=== PATIENT | female | born 1955 | race Caucasian/White ===

== ENCOUNTER → 2018-01-15 | Outpatient (CLI) | payer OTHER ==
[~2018-01-15] MED LIST: ALPH300C PO; ASPI-496 PO; CALC1CAP8 PO; CHOL200024 PO; FISH1CAP6 PO; FLUT16SP NS; METF500T9 PO; METO25TA91 PO; MULT-516 PO; OMEP-110 PO; PARO20TA4 PO; ROSU20TA PO
[2018-01-15 09:14] LABS: ALANINE AMINOTRANSFERASE 24 U/L (12-78); ALBUMIN 3.9 g/dL (3.4-5.0); ANION GAP 6 mmol/L (5-15); CHLORIDE 108 mmol/L (98-107); CREATININE 0.91 mg/dL (0.55-1.02)
[2018-01-15 09:17] LABS: ALKALINE PHOSPHATASE 67 U/L (45-117); BILIRUBIN,TOTAL 1.5 mg/dL (0.2-1.0); TOTAL PROTEIN 7.3 g/dL (6.4-8.2)
== END ==
LOC: STAR 08:04
PROVIDERS: ATTEND Obstetrics & Gynecology Female Pelvic Medicine and Reconstructive Surgery
DX: Z01.818 Encounter for other preprocedural examination (principal)
CPT/HCPCS: 36415; 80053; 93005

== ENCOUNTER 2018-01-20 09:42 | Day surgery (SDC) | payer OTHER ==
[2018-01-15 09:39] VITALS: BP 137/79
[~2018-01-20] VITALS: Ht 167.6 cm; Wt 117.0 kg
[~2018-01-20 09:42] MED LIST changes: +BUPIVACAINE/PF 0.25% ONE; +EPINEPHRINE 1 MG/ML, 1ML ONE; +NEOMY/POLYMYXIN B GU IRR. 1 ML IRRIG ONE
[2018-01-20] MEDS ORDERED: LACTATED RINGERS 1,000 ML IV SCH (11:06)
[2018-01-20] MEDS ORDERED: IMETREX PO (11:17)
[2018-01-20] MEDS ORDERED: SCOPOLAMINE PATCH, 1.5MG PATCH.TD72 TD SCH (11:30)
[2018-01-20] MEDS ORDERED: ACETAMINOPHEN 500 MG TABLET PO ONE (11:30)
[2018-01-20] MEDS ORDERED: GABAPENTIN 300 MG CAPSULE PO SCH (11:30)
[2018-01-20] MEDS ORDERED: OxyconTIN ER 20 MG TAB.ER ONE ×2 (12:12→12:19)
[2018-01-20] MEDS ORDERED: OxyconTIN ER 20 MG TAB.ER PO ONE (12:30)
[2018-01-20] MEDS ORDERED: FENTANYL PF 250 MCG/5ML ONE (12:45)
[2018-01-20] MEDS ORDERED: MIDAZOLAM 1 MG/ML, 2ML ONE (12:45)
[2018-01-20] MEDS ORDERED: PROPOFOL 10 MG/ML, 20ML ONE (12:46)
[2018-01-20] MEDS ORDERED: ROCURONIUM 10 MG/ML,10ML ONE (12:47)
[2018-01-20] MEDS ORDERED: GLYCOPYRROLATE 0.4 MG/2 ML, 2ML ONE (12:48)
[2018-01-20] MEDS ORDERED: NEOSTIGMINE 1 MG/ML, 10ML ONE (12:48)
[2018-01-20] MEDS ORDERED: DEXAMETHASONE 4 MG/ML, 1ML ONE ×2 (12:48)
[2018-01-20] MEDS ORDERED: SODIUM CHLORIDE 0.9% PF 10ML ONE (12:49)
[2018-01-20] MEDS ORDERED: CEFAZOLIN 1,000 MG ONE ×2 (12:49)
[2018-01-20] MEDS ORDERED: ONDANSETRON 2MG/ML, 2ML ONE (12:49)
[2018-01-20] MEDS ORDERED: hydrALAzine 20 MG/ML, 1ML IV PRN (14:30)
[2018-01-20] MEDS ORDERED: PROMETHAZINE 12.5 MG SUPP PR PRN (14:30)
[2018-01-20] MEDS ORDERED: morphine SULFATE 10 MG/ML, 1ML IV PRN (14:30)
[2018-01-20] MEDS ORDERED: PROMETHAZINE 25 MG/ML, 1ML IV PRN (14:30)
[2018-01-20] MEDS ORDERED: ONDANSETRON 2MG/ML, 2ML IVPush PRN (14:30)
[2018-01-20] MEDS ORDERED: OXYcodone 5 MG/5 ML ORAL.SOL UDC PO PRN (14:30)
[2018-01-20] MEDS ORDERED: HYDROmorphone 1 MG/ML, 1ML IV PRN ×2 (14:30→21:00)
[2018-01-20] MEDS ORDERED: FENTANYL PF 100 MCG/2ML IV PRN (14:30)
[2018-01-20] MEDS ORDERED: LABETALOL 5MG/ML, 20ML IV PRN (14:30)
[2018-01-20] MEDS ORDERED: MEPERIDINE/PF 25MG/0.5ML IVPush PRN (14:30)
[2018-01-20] MEDS ORDERED: OXYcodone/APAP 5/325MG TABLET PO PRN (21:00)
[2018-01-20] MEDS ORDERED: IBUPROFEN 600 MG TABLET PO PRN (21:00)
[2018-01-20] MEDS ORDERED: KETOROLAC 30 MG/1 ML IV PRN (21:00)
[2018-01-20] MEDS ORDERED: HYDROcodone/APAP 5/325 TABLET PO PRN (21:00)
[2018-01-20] MEDS ORDERED: ONDANSETRON 2MG/ML, 2ML IV PRN (21:00)
== END 2018-01-20 21:30 | disposition home or self-care (01) ==
LOC: OUT 09:42 → 4NOR 19:40 → OUT 21:30
PROVIDERS: ATTEND Obstetrics & Gynecology Female Pelvic Medicine and Reconstructive Surgery
PROC: 0JQC0ZZ Repair Pelvic Region Subcutaneous Tissue and Fascia, Open Approach (ICD-10-PCS; 2018-01-20)
PROC: 0JQC0ZZ Repair Pelvic Region Subcutaneous Tissue and Fascia, Open Approach (ICD-10-PCS; principal; 2018-01-20 12:30)
DX: N39.46 Mixed incontinence (principal); N81.5 Vaginal enterocele; E11.9 Type 2 diabetes mellitus without complications; F41.8 Other specified anxiety disorders; K21.9 Gastro-esophageal reflux disease without esophagitis; I10 Essential (primary) hypertension; G43.909 Migraine, unspecified, not intractable, without status migrainosus; G47.30 Sleep apnea, unspecified; Z90.710 Acquired absence of both cervix and uterus; Z98.890 Other specified postprocedural states; Z88.5 Allergy status to narcotic agent; Z91.018 Allergy to other foods; Z88.8 Allergy status to other drugs, medicaments and biological substances; I25.10 Atherosclerotic heart disease of native coronary artery without angina pectoris; Z79.899 Other long term (current) drug therapy; Z79.82 Long term (current) use of aspirin
CPT/HCPCS: 57260; 57288; 82962; C1771; J0171; J0690; J2250; J2405; J2704; J2710; J3010; J3490; J7120; J1100